=== PATIENT | male | born 1985 | race Two or more races ===

== ENCOUNTER 2024-10-24 10:03 | Emergency (ER) | payer OTHER, SELFPAY ==
[2024-10-24 10:29] VITALS: BP 114/78; PULSE 71; RESP 18; TEMP 37.2; O2SAT 95; BMI 36.9
--- NOTE | 2024-10-24 10:57 | XR_ITS ---
Examination: PA lateral chest 2 views TECHNIQUE: Upright PA lateral chest 2 views Exam date and time: October 24, 2024 1134 hours INDICATION: Chest pain coughing 3 days. FINDINGS: On the lateral view obscuration detail posterior portion left hemidiaphragm Normal heart size Right lung clear IMPRESSION: Early pneumonia posterior basal segment left lower lobe
[2024-10-24] MEDS: DEXAMETHASONE SOD PHOS INJ 10 MG/ML VIAL PO (11:09)
[2024-10-24] MEDS: ALBUTEROL/IPRATROPIUM (Duoneb) RT SOL 3 ML NEBU INH (11:12)
[2024-10-24 11:13] VITALS: PULSE 78; RESP 20; O2SAT 100
--- NOTE | 2024-10-24 12:37 | EDNOTE_ITS ---
ED SOB =RME/HPI General Chief Complaint: Shortness of Breath/Dyspnea Stated Complaint: Shortness of breath with cough Time Seen by Provider: 10/24/24 10:48 Arrival date/time: 10/24/24 10:03 39-year-old male presents to the Emergency Department today complaints of fever, cough, congestion ongoing for the last couple of days Limitations: no limitations Related Data Previous Rx's ?Medication ?Instructions ?Recorded ibuprofen 800 mg tablet 800 mg PO Q8H PRN pain #20 t abs 03/01/23 albuterol sulfate 90 mcg/actuation 2 puff inhalation Q 6H PRN 10/24/24 aerosol inhaler (Ventolin HFA) shortness of breath or wheezing #8.5 grams benzonatate 100 mg capsule 100 mg PO TID #14 caps 10/11 10/05 Allergies Allergy/AdvReac Type Severity Reaction Status Date / Time No Known Allergies Allergy Verified 10/24/24 10:07 Review of Systems Review of Systems Systems Reviewed: All systems reviewed, normal except as documented Constitutional Constitutional: Reports system reviewed and no additional complaints, except as documented, Reports body ache(s), Reports fever(s) and Reports headache(s) Eyes Eyes: Reports system reviewed and no additional complaints, except as documented and Denies blurry vision ENT Ears, Nose, Mouth, and Throat: Reports system reviewed and no additional complaints, except as documented, Reports headache(s), Denies nasal congestion and Denies nasal discharge Cardiovascular Cardiovascular: Reports system reviewed and no additional complaints, except as documented, Denies chest pain and Denies dyspnea Respiratory Respiratory: Reports system reviewed and no additional complaints, except as documented, Reports chest congestion, Reports cough, Denies dyspnea and Reports wheezing Gastrointestinal Gastrointestinal: Reports system reviewed and no additional complaints, except as documented and Denies abdominal pain Integumentary/Breasts Skin/Breast: Reports system reviewed and no additional complaints, except as documented and Denies rash Neurologic Neurologic: Reports system reviewed and no additional complaints, except as documented, Reports as per HPI and Reports headache(s) Allergic/Immunologic Allergic/Immunologic: Reports wheezing Past Medical History Past Medical History NEUROLOGIC: Negative Neurological Disorders or Seizures CARDIAC: Negative Cardiac Disorders or Congestive Heart Failure RESPIRATORY: Negative Chronic Obstructive Pulmonary Disease (COPD) GASTROINTESTINAL: Positive Gall Bladder Disease GENITOURINARY: Negative Genitourinary Disorders or Renal Disease MUSCULOSKELETAL: Negative Musculoskeletal Disorders ENDOCRINE: Negative Endocrine Disorders, Diabetes Mellitus Type 1 or Diabetes Mellitus Type 2 HEMATOLOGIC: Negative Blood Disorders OTHER HISTORY: Positive Chicken Pox (as aa kid); Negative Autoimmune Disease, Falls, Blood Transfusions (na), Blood Transfusion Reaction, Anesthesia Reactions, Chemotherapy, Radiation Therapy, MRSA or Cancer Family History FAMILY HISTORY: Positive Family Surgery (dad hernia repair); Negative Family Psychiatric Problems, Family Respiratory Disorders, Family Cardiac Disorders, Family Gastrointestinal Problems, Family Cancer or Family Anesthesia Reaction Social History SMOKING STATUS: Never smoker ED Exam General Limitations: Present no limitations General appearance: Present alert and in no apparent distress Head Head exam: Present atraumatic, normocephalic and normal inspection Eye Eye exam: Present normal appearance, PERRL and EOMI; Absent conjunctival injection ENT ENT exam: Present normal exam, normal oropharynx and mucous membranes moist Neck Neck exam: Present normal inspection, full ROM and trachea midline Chest Chest inspection: Present normal inspection and symmetric chest wall rise Respiratory Respiratory exam: Present wheezes; Absent respiratory distress, stridor, accessory muscle use or prolonged expiratory phase Cardiovascular Cardiovascular exam: Present regular rate, normal rhythm and normal heart sounds Abdominal Exam Abdominal exam: Present soft and normal bowel sounds Extremities Exam Extremities exam: Present normal inspection and full ROM Back Exam Back exam: Present normal inspection and full ROM Neurological Exam Neurological exam: Present alert, oriented X3 and CN II-XII intact Psychiatric Psychiatric exam: Present normal affect and normal mood Skin Skin exam: Present warm, dry, intact and normal color Course Quality Measures none Orders Category Date Time Status Bedside COVID-19 Antigen Test NOW Care 10/24/24 10:57 Completed Bedside Influenza A&B Antigen Test NOW Care 10/24/24 10:57 Completed XR chest 2V Stat Exams 10/24/24 10:57 Completed Albuterol/Ipratr Rt Yoana [Duoneb Rt Yoana] Med 10/24/24 10:57 Discontinued 3 ml INH X1 ONE Dexamethasone Inj [Decadron Inj] Med 10/24/24 10:57 Discontinued 10 mg PO X1 ONE Lidocaine 1% 20 ml [Xylocaine 1% 20 ML] Med 10/24/24 12:37 Discontinued 2.1 ml INFL X1 ONE cefTRIAXone [Rocephin] Med 10/24/24 12:37 Discontinued 1,000 mg IM X1 ONE Vital Signs Vital signs: Vital Signs Temperature 98.9 F 10/24/24 10:29 Pulse Rate 71 10/24/24 10:29 Respiratory Rate 18 10/24/24 10:29 Blood Pressure 114/78 10/24/24 10:29 Pulse Oximetry (%) 95 10/24/24 10:29 Oxygen Delivery Method Room Air 10/24/24 10:29 O2 saturation 95% room air within normal limits Shortness of Breath / Dyspnea MDM Narrative MDM Narrative:: 39-year-old male presents to the Emergency Department today complaints of fever, cough, congestion ongoing for the last couple of days On exam patient well-appearing patient does not appear ill or toxic in no acute distress On exam the patient does have wheezing patient given breathing treatment as well as steroids Time reevaluation lungs clear to auscultation X-ray flu and COVID obtained X-ray consistent with pneumonia patient be treated accordingly Patient discharged home in no distress to follow-up with primary care doctor in the next 24 to 48 hours and for any worsening symptoms to return to the ER immediately Patient data External records reviewed:: [facility] previous records Clinical information provided by:: patient Social determinants that could affect healthcare access:: none Patient has the following chronic illnesses:: See history How is presenting disease/condition affected by chronic disease/condition?: uneffected by Evaluation data The following diagnostics were reviewed and interpreted by me:: lab results and radiology exam(s) Lab and/or radiology exams considered but not ordered:: Labs radiology obtain Interpretation Summary: Reviewed by me Medications / Prescriptions Medications or Prescriptions considered but not ordered:: Given Medication administrations:: Medication Administration History Discontinued Medications Albuterol/Ipratropium (Albuterol/Ipratropium (Duoneb) Rt Yoana 3 Ml Nebu) 3 ml INH X1 ONE Stop: 10/24/24 10:58 Last Admin: 10/24/24 11:12 Dose: 3 ml Documented By: BART Ceftriaxone Sodium (Ceftriaxone Sod Inj 1,000 Mg Vial) 1,000 mg IM X1 ONE Stop: 10/24/24 12:38 Last Admin: 10/24/24 12:51 Dose: 1,000 mg Documented By: JEFF Dexamethasone Sodium Phosphate (Dexamethasone Sod Phos Inj 10 Mg/Ml Vial) 10 mg PO X1 ONE Stop: 10/24/24 10:58 Last Admin: 10/24/24 11:09 Dose: 10 mg Documented By: JEFF Comments: po administration Lidocaine HCl (Lidocaine Hcl 1% 20 Ml Vial) 2.1 ml INFL X1 ONE Stop: 10/24/24 12:38 Last Admin: 10/24/24 12:51 Dose: 2.1 ml Documented By: JEFF Given Consultations Consultation(s) initiated? (list below): No Diagnosis Shortness of Breath Differential Diagnosis: acute exacerbation of chronic obstructive airways disease, congestive heart failure and asthma with exacerbation Most likely diagnosis given after review of the tests above:: Pneumonia, wheezing Admission Indicated Admission indicated?: not indicated Admission Request Was there a request for admission?: No Disposition Plan Disposition Plan: Discharge Discharge Attestation Discharge Attestation: The patient and all family members were given an opportunity to ask questions and understood the discharge instructions. Discharge instructions specifically effects, indications for sooner follow up or return to the emergency department, and the expected course of current diagnosis. Patient condition: Stable Discharge Plan Plan Patient Disposition: HOME (Self Care) Discharge Disposition comment: Stable Prescriptions/Referrals Prescriptions/Med Rec: New benzonatate 100 mg capsule 100 mg PO TID Qty: 14 0RF albuterol sulfate [Ventolin HFA] 90 mcg/actuation HFA aerosol inhaler 2 puff inhalation Q6H PRN (Reason: shortness of breath or wheezing) Qty: 8.5 0RF No Action ibuprofen 800 mg tablet 800 mg PO Q8H PRN (Reason: pain) Qty: 20 0RF Referrals: Sienna Shepard FNP-C [Primary Care Provider] - 10/25/24 Problem List Clinical Impression: Pneumonia Patient/Caregiver Discharge Instructions Additional Instructions: Please follow up with your primary care doctor in the next 24-48hrs for any worsening symptoms return here immediately Print Language: Bulgarian Stand Alone Forms: Jacki Award Info., Work/School Release, Patient Portal Info Letter ASHLEE/ZACH Supervising Physician RADHA Supervising Physician: Dr. issa
[2024-10-24] MEDS: LIDOCAINE HCL 1% 20 ML VIAL 2.1 ML INFL (12:51)
[2024-10-24] MEDS: cefTRIAXone SOD INJ 1,000 MG VIAL 1000 MG IM (12:51)
== END 2024-10-24 12:56 | disposition home or self-care (01) ==
PROVIDERS: Emergency Provider Emergency Medicine
DX: J18.9 Pneumonia, unspecified organism (principal)
CPT/HCPCS: 71046; 87400; 87811; 94640; 96372; 99283; A9270; J0696; J1100; J3490